=== PATIENT | female | born 1955 | race African-American/Black ===

== ENCOUNTER 2017-06-01 12:58 | Emergency (ER) | payer MEDICARE, OTHER ==
[~2017-06-01] VITALS: Ht 165.1 cm; Wt 63.5 kg
[2017-06-01 13:25] VITALS: BP 114/87
--- NOTE | 2017-06-01 14:06 | Diagnostic Imaging Report ---
Indication: Pain Findings: 3 views of the left wrist were obtained. There is an acute transverse fracture involving the distal radius extending into the distal radial ulnar joint. There is slight impaction and dorsal displacement. Ulnar styloid fracture also noted. Bones are osteopenic. Soft tissue swelling noted. IMPRESSION: Acute distal radius fracture.
[2017-06-01] MEDS ORDERED: IBUPROFEN600 MG ORAL (14:21)
[2017-06-01 14:50] VITALS: BP 147/90
--- NOTE | 2017-06-03 07:46 | Emergency Room Report ---
History of Present Illness General Chief Complaint: General Complaint Source: Patient, Friend Present Illness HPI Patient present with complaints of left wrist swelling. 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 From previous stroke Patient also has history of seizures Patient brought with a friend who reports that is exactly unclear how the patient injured the wrist however she has had seizures in the past which was not aware of Patient herself also not fully able to provide history history of previous CVA affecting some memory Denies any pain in that area patient is paralyzed Denies any other head injury or headache denies any chest pain or shortness of breath,, Allergies: Coded Allergies: No Known Allergies (Unverified , 11/19/13) Patient History Past Medical History: see triage record Pertinent Family History: none Reviewed Nursing Documentation: PMH: Agreed, PSxH: Agreed Nursing Documentation-PMH Hx Cerebrovascular Accident: Yes Hx Seizures: Yes Review of Systems All Other Systems: negative except mentioned in HPI Physical Exam Vital Signs Date Time Temp Pulse Resp B/P (MAP) Pulse Ox O2 Delivery O2 Flow Rate FiO2 06/01/17 13:15 98.1 76 20 114/87 99 Room Air Sp02 EP Interpretation: reviewed, normal General Appearance: no apparent distress Head: normocephalic, atraumatic Eyes: bilateral eye PERRL, bilateral eye EOMI ENT: hearing grossly normal, normal pharynx Neck: full range of motion, supple Respiratory: chest non-tender, lungs clear Cardiovascular #1: regular rate, rhythm Gastrointestinal: normal bowel sounds, non tender Musculoskeletal: swelling - Obvious swelling noted to the left forearm and distal wrist, patient has paralysis of that upper extremities Neurologic: alert, oriented x3, responsive Skin: other - as above Lymphatic: no adenopathy Procedures Splinting Splinting : Consent: Verbal Location: left wrist Pre-Made Type: velcro Splint: volar Pre-Proc Neuro Vasc Exam: normal Post-Proc Neuro Vasc Exam: normal Patient Tolerated: Well Complications: None Medical Decision Making Diagnostic Impression: Primary Impression: wrist fracture ER Course Multiple differentials considered, including but not limited to fracture, infection, vascular such as DVT, patient imaging shows obvious acute fracture Therefore the etiology is likely secondary to that Patient had the area splinted will require further outpatient orthopedic followup Otherwise remains neurovascularly intact and stable for close followup Other X-Ray Diagnostic Results Other X-Ray Diagnostic Results : X-Ray ordered: left wrist # of Views/Limited Vs Complete: 3 View Indication: Pain EP Interpretation: Yes Interpretation: other - Acute distal radial fracture, styloid fracture, mild impaction, soft tissue swelling Impression: Other - Distal radial fracture with styloid of ulna fracture Electronically Signed by: Ralph Gonzalez DO Last Vital Signs Date Time Temp Pulse Resp B/P (MAP) Pulse Ox O2 Delivery O2 Flow Rate FiO2 06/01/17 14:50 77 16 147/90 99 Room Air 06/01/17 13:25 98.1 Status: improved Disposition: HOME, SELF-CARE Condition: Improved Scripts Ibuprofen* (MOTRIN*) 600 Mg Tablet 600 MG ORAL Q8H Y for For Pain, #20 TAB 0 Refills Prov: RALPH GONZALEZ D.O. 06/01/17 Referrals: NON PHYSICIAN (PCP) Patient Instructions: Wrist Fracture, [id number] Additional Instructions: Patient is provided with the discharge instructions notified to follow up with primary doctor in the next 2-3 days otherwise return to the er with any worsening symptoms. Please note that this report is being documented using [employer] technology. This can lead to erroneous entry secondary to incorrect interpretation by the dictating instrument. RALPH GONZALEZ D.O. Jun 03, 2017 07:46
== END 2017-06-01 14:50 | disposition home or self-care (01) ==
LOC: EMR 13:40
DX: S52.512A Displaced fracture of left radial styloid process, initial encounter for closed fracture (principal); X58.XXXA Exposure to other specified factors, initial encounter; Y93.9 Activity, unspecified; Y99.9 Unspecified external cause status; M25.432 Effusion, left wrist; G83.24 Monoplegia of upper limb affecting left nondominant side; Z86.73 Personal history of transient ischemic attack (TIA), and cerebral infarction without residual deficits; Z86.69 Personal history of other diseases of the nervous system and sense organs
CPT/HCPCS: 99283

== ENCOUNTER 2017-06-22 08:03 | Emergency (ER) | payer MEDICARE, OTHER ==
[~2017-06-22] VITALS: Ht 165.1 cm; Wt 62.6 kg
[~2017-06-22 08:03] MED LIST: IBUPROFEN600 MG ORAL
[2017-06-22 08:04] VITALS: BP 113/69
--- NOTE | 2017-06-22 09:17 | Emergency Room Report ---
History of Present Illness General Chief Complaint: Generalized Weakness Source: Patient, EMS Present Illness HPI 62-year-old female brought in from assisted living with caregiver Chief complaint is pain to left thigh that has given her difficulty walking for last 2 weeks Patient endorses pain since fall in which she fractured left wrist - was seen and evaluated here for this injury Patient had cast placed on subsequent followup with orthopedics Review of EMR, patient denied any pain to left hip or leg at that visit She had a stroke with residual left-sided weakness many years ago Today patient on multiple questioning denies weakness or loss of strength to left leg or any acute weakness to right side of body otherwise endorses healthy appetite, denies chest pain shortness of breath abdominal pain nausea vomiting Allergies: Coded Allergies: PENICILLINS (Unverified Allergy, Unknown, 06/22/17) Patient History Past Medical History: CVA/TIA Past Surgical History: none Pertinent Family History: none Social History: Denies: smoking, alcohol use, drug use Last Menstrual Period: NA Now: No Nursing Documentation-PMH Past Medical History: No History, Except For Hx Neurological Problems: Yes - cognitive impairment Hx Cerebrovascular Accident: Yes - 2 years ago Hx Seizures: Yes Review of Systems All Other Systems: negative except mentioned in HPI Physical Exam Vital Signs Date Time Temp Pulse Resp B/P (MAP) Pulse Ox O2 Delivery O2 Flow Rate FiO2 06/22/17 07:55 98.6 66 16 111/78 98 Room Air Sp02 EP Interpretation: reviewed, normal General Appearance: normal inspection, well appearing, no apparent distress, alert, GCS 15, non-toxic Head: normocephalic, atraumatic Eyes: bilateral eye PERRL, bilateral eye EOMI ENT: normal ENT inspection, hearing grossly normal, normal pharynx, no angioedema, normal voice, TMs + canals normal, uvula midline, moist mucus membranes Neck: normal inspection, full range of motion, supple, thyroid normal, no meningismus, no bony tend Respiratory: normal inspection, lungs clear, normal breath sounds, no rhonchi, no respiratory distress, no retraction, no accessory muscle use, no wheezing, speaking full sentences Cardiovascular #1: regular rate, rhythm, no edema, no JVD, normal capillary refill Gastrointestinal: normal inspection, normal bowel sounds, non tender, soft, no mass, no peritonitis, non-distended, no guarding, no hernia, no pulsatile mass Genitourinary: no CVA tenderness Musculoskeletal: normal inspection, back normal, normal range of motion, non- tender, no calf tenderness, pelvis stable, Soren's Sign negative, other - Left forearm with cast Neurologic: normal inspection, alert, oriented x3, 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 On left thigh lateral aspect there is tenderness to the soft tissue, no obvious signs of trauma or ecchymoses. No actual tenderness to femur bone of left thigh. Pelvis is stable Psychiatric: normal inspection, judgement/insight normal, mood/affect normal, no suicidal/homicidal ideation, no delusions Skin: normal inspection, normal color, no rash Lymphatic: normal inspection, no adenopathy Medical Decision Making Diagnostic Impression: Primary Impression: Left thigh pain ER Course left thigh pain X-ray of left femur negative for facture or dislocation CT head: chronic right sided atropy. No acute CVA (per verbal report from Rad) Patient reassured patient was asked multiple times, denies weakness I do not think that lab workup is necessary at this time given healthy appetite , well appearance, no other comorbidities and stable vitals Unlikely DVT as she has no posterior calf ttp, negative Soren's test, and no recent immobilization or surgery ER course: Patient has remained stable during ED stay. Disposition: Patient is to be discharged to home. Patient is instructed to follow up with their primary care doctor within 5 days. Strict return precautions discussed with patient such as fever, chills, worsening/severe pain, nausea, vomiting, which may indicate severe illness. Patient verbalizes understanding and agrees with plan. Please note that this Emergency Department Report was dictated using [employer] physiologist technology software, occasionally this can lead to erroneous entry secondary to interpretation by the dictation equipment Last Vital Signs Date Time Temp Pulse Resp B/P (MAP) Pulse Ox O2 Delivery O2 Flow Rate FiO2 06/22/17 08:04 98.6 60 14 113/69 99 Room Air Status: improved Disposition: HOME, SELF-CARE Referrals: NON PHYSICIAN (PCP) CLARISSA GARCIA M.D. Jun 22, 2017 09:17
[2017-06-22 09:52] VITALS: BP 128/83
--- NOTE | 2017-06-22 09:54 | Diagnostic Imaging Report ---
Indication: Weakness Technique: Continuous helical CT scanning of the head was performed utilizing automated exposure control without intravenous contrast material. Axial and coronal reconstructions were obtained. Comparison: None CT dose: Total DLP 1393.68 mGycm; CTDI vol 70.38 mGy Findings: There is no acute intracranial hemorrhage. There is asymmetric volume loss on the right with expansion of the CSF spaces. These findings may be on the basis of remote ischemia or be congenital. No definite focus of hypoattenuation is noted to suggest acute infarct. There is approximately 5 mm of [id number] midline shift. There is no cisternal effacement. There is no depressed skull fracture. No focal soft tissue swelling/scalp hematoma identified. Mastoid air cells and paranasal sinuses are clear. Imaged portions of the orbits are grossly unremarkable. IMPRESSION: No evidence of acute intracranial hemorrhage or definite CT evidence of acute infarct. MRI can be obtained for more sensitive evaluation as clinically indicated. Asymmetric atrophy of the right cerebral hemisphere, predominantly the right frontal lobe, with expansion of the CSF spaces and some mild [id number] midline shift. No cisternal effacement. These findings may be chronic and on the basis of remote ischemia or additional congenital or remote acquired pathologies. Comparison with prior exams would be helpful to assess for interval change. The CT scanner at [facility] is accredited by the [employer] and the scans are performed using protocols designed to limit radiation exposure to as low as reasonably achievable to attain images of sufficient resolution adequate for diagnostic evaluation.
--- NOTE | 2017-06-22 09:56 | Diagnostic Imaging Report ---
Indication: Pain Technique: XRAY Femur 2v L Comparison: None Findings: There is no acute fracture or dislocation. No focal soft tissue abnormality/defect is appreciated. No radiopaque foreign body seen. There are mild atherosclerotic vascular calcifications noted. Impression: No acute fracture or dislocation.
== END 2017-06-22 09:52 | disposition home or self-care (01) ==
LOC: EDBD 08:03 → EMR 08:47
DX: M79.652 Pain in left thigh (principal); R53.1 Weakness; G31.9 Degenerative disease of nervous system, unspecified; Z86.73 Personal history of transient ischemic attack (TIA), and cerebral infarction without residual deficits; Z88.0 Allergy status to penicillin
CPT/HCPCS: 70450; 99284